=== PATIENT | female | born 1990 | race Caucasian/White ===

== ENCOUNTER 2016-10-18 07:56 | Inpatient (IN) | payer BC, MEDICAID ==
[2016-10-18] MEDS ORDERED: Sodium Chloride 0.9% 10 ML Syringe FLUSH PRN (08:37)
[2016-10-18] MEDS: Lactated Ringers 1,000 ML IV SCH ×4 (08:45→14:33)
[2016-10-18] MEDS ORDERED: Penicillin G Potassium 5 MILLUNITS in Sodium Chloride 0.9% 100 ML IV SCH (08:45)
[2016-10-18] MEDS ORDERED: Oxytocin/Lactated Ringers 10 UNIT/1,000 ML BAG IV SCH ×2 (08:45)
[2016-10-18] MEDS ORDERED: fentaNYL 100 MCG/2 ML SDV EPIDUR PRN (10:04)
[2016-10-18] MEDS ORDERED: Ondansetron 4 MG/2 ML SDV IVPUSH PRN (10:04)
[2016-10-18] MEDS ORDERED: ePHEDrine 50 MG/ML SDV IVPUSH PRN (10:04)
--- NOTE | 2016-10-18 10:10 | PCM.PREANE ---
Preanesthetic Assessment - Anesthesia/Transfusion/Family Hx Anesthesia History: Prior Anesthesia Without Reaction Family History of Anesthesia Reaction: No Transfusion History: No Prior Transfusion(s) Intubation History: Unknown - Review of Systems General: No Symptoms Pulmonary: No Symptoms Cardiovascular: No Symptoms, Lightheadedness (history of in 2016, nothing since.) Gastrointestinal: Diarrhea, Nausea Neurological: No Symptoms Other: Reports: None, Easy Bruising - Physical Assessment NPO Status Date: 10/18/16 NPO Status Time: 10:00 Pulse: 72 O2 Sat by Pulse Oximetry: 99 Respiratory Rate: 16 Blood Pressure: 119/66 Temperature: 36.9 C Vital Signs: Last Vital Signs Temp 36.9 C 10/18/16 08:37 Pulse 72 10/18/16 08:37 Resp 16 10/18/16 08:37 BP 119/66 10/18/16 08:37 Pulse Ox Height: 1.75 m Weight: 94.432 kg ASA Class: 2 Mental Status: Alert & Oriented x3 Airway Class: Mallampati = 2 Dentition: Reports: Normal Dentition, Caries Thyro-Mental Finger Breadths: 3 Mouth Opening Finger Breadths: 3 ROM/Head Extension: Full Lungs: Clear to auscultation, Normal respiratory effort Cardiovascular: Regular Rate, Regular Rhythm, No Murmurs - Lab Values: Laboratory Last Values WBC 10.88 K/mm3 (3.98-10.04) H 10/18/16 08:54 RBC 4.27 M/mm3 (3.98-5.22) 10/18/16 08:54 Hgb 12.4 gm/L (11.2-15.7) 10/18/16 08:54 Hct 36.8 % (34.1-44.9) 10/18/16 08:54 MCV 86.2 fl (79.4-94.8) 10/18/16 08:54 MCH 29.0 pg (25.6-32.2) 10/18/16 08:54 MCHC 33.7 g/dl (32.2-35.5) 10/18/16 08:54 RDW Std Deviation 40.8 fL (36.4-46.3) 10/18/16 08:54 Plt Count 188 K/mm3 (182-369) 10/18/16 08:54 MPV 10.9 fl (9.4-12.3) 10/18/16 08:54 Neut % (Auto) 79.0 % (34.0-71.1) H 10/18/16 08:54 Lymph % (Auto) 13.6 % (19.3-51.7) L 10/18/16 08:54 [place] % (Auto) 6.2 % (4.7-12.5) 10/18/16 08:54 Eos % (Auto) 0.6 (0.7-5.8) L 10/18/16 08:54 Baso % (Auto) 0.3 % (0.1-1.2) 10/18/16 08:54 Neut # (Auto) 8.60 K/mm3 (1.56-6.13) H 10/18/16 08:54 Lymph # (Auto) 1.48 K/mm3 (1.18-3.74) 10/18/16 08:54 [place] # (Auto) 0.67 K/mm3 (0.24-0.36) H 10/18/16 08:54 Eos # (Auto) 0.07 K/mm3 (0.04-0.36) 10/18/16 08:54 Baso # (Auto) 0.03 K/mm3 (0.01-0.08) 10/18/16 08:54 Above lab values noted and reviewed. - Imaging/EKG Impressions: 05/18/2016: EKG due to near syncopal episode, SR rte= 64, no acute ischemia or arrhythmias noted. 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 1 tab PO DAILY 05/18/16 [History] - CURRENT (IN HOUSE) MEDS Current Meds: Current Medications Lactated Ringer's (Ringers, Lactated) 1,000 mls @ 100 mls/hr IV ASDIRECTED CHELA Last Admin: 10/18/16 08:45 Dose: 100 mls/hr Oxytocin/Lactated Ringer's (Pitocin In Lr 10 Units/1,000 Ml) 10 unit in 1,000 mls @ 500 mls/hr IV ASDIRECTED CHELA PRN Reason: Protocol Penicillin G Potassium 5 (millunits/ Sodium Chloride) 100 mls @ 55 mls/hr IV ONETIME CHELA Last Admin: 10/18/16 09:35 Dose: 55 mls/hr Penicillin G Potassium 2.5 (millunits/ Sodium Chloride) 100 mls @ 55 mls/hr IV Q4H CHELA Oxytocin/Lactated Ringer's (Pitocin In Lr 10 Units/1,000 Ml) 10 unit in 1,000 mls @ 12 mls/hr IV TITRATE CHELA; 2 MUNITS/MIN PRN Reason: Protocol Sodium Chloride (Saline Flush) 10 ml FLUSH ASDIRECTED PRN PRN Reason: Keep Vein Open
[2016-10-18] MEDS ORDERED: Bupivacaine/fentaNYL/NS 100 ML Bag EPIDUR SCH (10:15)
--- NOTE | 2016-10-18 11:53 | PCM.LDHP ---
L&D History of Present Illness - General Date of Service: 10/18/16 Admit Problem/Dx: Patient Status Order with Admit Dx/Problem 10/18/16 09:54 Patient Status [ADT] Routine Admission Diagnosis/Problem Admission Diagnosis/Problem Normal labor 10/18/16 11:49 26 yo at 38 weeks 5 days gestation with SROM at 0630 am. Contractions started with SROM. Clear fluid. good movement. no vaginal bleeding. routine care without complications O positive Rubella Immune GBS positive Source of Information: Patient History Limitations: Reports: No Limitations - History of Present Illness Location, : Reports: Abdomen Quality: Reports: Ache Severity: Moderate Improves with: Reports: None Worsens with: Reports: None - Related Data Allergies/Adverse Reactions: Allergies Allergy/AdvReac Type Severity Reaction Status Date / Time Sulfa (Sulfonamide Allergy Hives Verified 10/18/16 09:36 Antibiotics) Home Medications: Home Meds Vitamins. 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: - Past Surgical History HEENT Surgical History: Reports: Oral Surgery Social & Family History - Family History Family Medical History: Noncontributory - Tobacco Use Smoking Status *Q: Never Smoker Second Hand Smoke Exposure: No - Recreational Drug Use Recreational Drug Use: No H&P Review of Systems - Review of Systems: Review Of Systems: See Below General: Reports: No Symptoms HEENT: Reports: No Symptoms Pulmonary: Reports: No Symptoms Cardiovascular: Reports: No Symptoms Gastrointestinal: Reports: No Symptoms Genitourinary: Reports: No Symptoms Musculoskeletal: Reports: No Symptoms Skin: Reports: No Symptoms Psychiatric: Reports: No Symptoms Neurological: Reports: No Symptoms Hematologic/Lymphatic: Reports: No Symptoms Immunologic: Reports: No Symptoms L&D Exam - Exam Exam: See Below - Vital Signs Vital Signs: Last Vital Signs Temp 36.9 C 10/18/16 10:19 Pulse 72 10/18/16 10:19 Resp 16 10/18/16 10:19 BP 119/66 10/18/16 10:19 Pulse Ox 99 10/18/16 10:19 Weight: 94.432 kg - OB Specific Contraction Intensity: Moderate Movement: Active Heart Tones: Present Heart Tones per Min: 130 Heart Rate (FHR) Variability: Moderate (6-25 bmp) Presentation: Vertex Estimated Weight: 3500 - Roberto Score Roberto Score Cervix Position: Midposition Roberto Score Consistency: Soft Roberto Score Effacement: 51-70% Roberto Score Dilation: 3-4 cm Roberto Score 's Station: -2 Roberto Score Total: 8 - Exam General: Alert, Oriented HEENT: Conjunctiva Clear Genitourinary: Normal external exam Extremities: Normal Inspection. No: Edema Skin: Warm, Dry, Intact - Patient Data Lab Results Last 24 hrs: Laboratory Results - last 24 hr 10/18/16 Range/Units 08:54 WBC 10.88 H (3.98-10.04) K/mm3 RBC 4.27 (3.98-5.22) M/mm3 Hgb 12.4 (11.2-15.7) gm/L Hct 36.8 (34.1-44.9) % MCV 86.2 (79.4-94.8) fl MCH 29.0 (25.6-32.2) pg MCHC 33.7 (32.2-35.5) g/dl RDW Std Deviation 40.8 (36.4-46.3) fL Plt Count 188 (182-369) K/mm3 MPV 10.9 (9.4-12.3) fl Neut % (Auto) 79.0 H (34.0-71.1) % Lymph % (Auto) 13.6 L (19.3-51.7) % [place] % (Auto) 6.2 (4.7-12.5) % Eos % (Auto) 0.6 L (0.7-5.8) Baso % (Auto) 0.3 (0.1-1.2) % Neut # (Auto) 8.60 H (1.56-6.13) K/mm3 Lymph # (Auto) 1.48 (1.18-3.74) K/mm3 [place] # (Auto) 0.67 H (0.24-0.36) K/mm3 Eos # (Auto) 0.07 (0.04-0.36) K/mm3 Baso # (Auto) 0.03 (0.01-0.08) K/mm3 Result Diagrams: 10/18/16 08:54 Problem List Initiated/Reviewed/Updated: Yes Orders Last 24hrs: Active Orders 24 hr Category Date Time Status Patient Status [ADT] Routine ADT 10/18/16 09:54 Active Activity as Tolerated [RC] PFP Care 10/18/16 08:37 Active Communication Order [RC] ASDIRECTED Care 10/18/16 08:37 Active Notify Provider [RC] ASDIRECTED Care 10/18/16 10:04 Active Notify Provider [RC] PFP Care 10/18/16 08:37 Active Notify Provider [RC] PRN Care 10/18/16 08:37 Active Oxygen Therapy [RC] ASDIRECTED Care 10/18/16 10:04 Active Peripheral IV Care [RC] . DIRECTED Care 10/18/16 08:38 Active Pulse Oximetry [RC] ASDIRECTED Care 10/18/16 10:04 Active Pump Management, Intrathecal [RC] ASDIRECTED Care 10/18/16 08:37 Active Urinary Catheter Assessment [RC] ASDIRECTED Care 10/18/16 08:37 Active Vital Signs [RC] PER UNIT ROUTINE Care 10/18/16 08:37 Active Clear Liquid Diet [DIET] Diet 10/18/16 Dinner Active Regular Diet [DIET] Diet 10/18/16 Breakfast Active Bupivacaine/fentaNYL/NS [fentaNYL/Bupivacaine/NS 2 MCG- Med 10/18/16 10:15 Active 0.125% 100 ML] 100 ml EPIDUR ASDIRECTED Lactated Ringers [Ringers, Lactated] 1,000 ml Med 10/18/16 08:45 Active IV ASDIRECTED Ondansetron [Zofran] Med 10/18/16 10:04 Active 4 mg IVPUSH ONETIME PRN Oxytocin/Lactated Ringers [Pitocin in LR 10 Units/1,000 Med 10/18/16 08:45 Active ML] 10 unit in 1,000 ml IV ASDIRECTED Oxytocin/Lactated Ringers [Pitocin in LR 10 Units/1,000 Med 10/18/16 08:45 Active ML] 10 unit in 1,000 ml IV TITRATE Penicillin G Potassium [Pfizerpen] 2.5 millunits Med 10/18/16 13:00 Active Sodium Chloride 0.9% [Normal Saline] 100 ml IV Q4H Sodium Chloride 0.9% [Saline Flush] Med 10/18/16 08:37 Active 10 ml FLUSH ASDIRECTED PRN ePHEDrine [ePHEDrine Sulfate] Med 10/18/16 10:04 Active 5 mg IVPUSH ASDIRECTED PRN fentaNYL [Sublimaze] Med 10/18/16 10:04 Active 100 mcg EPIDUR Q3H PRN Electronic Heart Tones Ext w TOCO [WOMSER] Oth 10/18/16 08:37 Ordered Routine Electronic Heart Tones Internal [WOMSER] Per Unit Oth 10/18/16 08:37 Ordered Routine Peripheral IV Insertion Adult [OM.PC] Routine Oth 10/18/16 08:37 Ordered Resuscitation Status Routine Resus Stat 10/18/16 08:37 Ordered Medication Orders Ephedrine Sulfate (Ephedrine Sulfate) 5 mg IVPUSH ASDIRECTED PRN PRN Reason: Hypotension Fentanyl (Sublimaze) 100 mcg EPIDUR Q3H PRN PRN Reason: Pain Fentanyl/Bupivacaine HCl (Fentanyl/Bupivacaine/Ns 2 Mcg-0.125% 100 Ml) 100 ml EPIDUR ASDIRECTED CHELA Lactated Ringer's (Ringers, Lactated) 1,000 mls @ 100 mls/hr IV ASDIRECTED CHELA Last Admin: 10/18/16 08:45 Dose: 100 mls/hr Oxytocin/Lactated Ringer's (Pitocin In Lr 10 Units/1,000 Ml) 10 unit in 1,000 mls @ 500 mls/hr IV ASDIRECTED CHELA PRN Reason: Protocol Penicillin G Potassium 2.5 (millunits/ Sodium Chloride) 100 mls @ 55 mls/hr IV Q4H CHELA Oxytocin/Lactated Ringer's (Pitocin In Lr 10 Units/1,000 Ml) 10 unit in 1,000 mls @ 12 mls/hr IV TITRATE CHELA; 2 MUNITS/MIN PRN Reason: Protocol Last Admin: 10/18/16 10:45 Dose: 2 munits/min, 12 mls/hr Ondansetron HCl (Zofran) 4 mg IVPUSH ONETIME PRN PRN Reason: Nausea/Vomiting Sodium Chloride (Saline Flush) 10 ml FLUSH ASDIRECTED PRN PRN Reason: Keep Vein Open Assessment/Plan Comment:: 26 yo at 38 weeks 5 days gestation with SROM at home. Admit for labor Pitocin started GBS positive-penicillin started. Anticipate vaginal delivery. Pt desires epidural for pain management.
[2016-10-18] MEDS ORDERED: Penicillin G Potassium 2.5 MILLUNITS in Sodium Chloride 0.9% 100 ML IV SCH (13:00)
[2016-10-18] MEDS ORDERED: Lanolin 100% Cream 7 GM Tube TOP PRN (16:36)
[2016-10-18] MEDS ORDERED: Witch Hazel Medicated Pads 100/Jar TOP PRN (16:36)
[2016-10-18] MEDS ORDERED: Benzocaine/Menthol 20%-0.5% Spray 56 GM Canister TOP PRN (16:36)
--- NOTE | 2016-10-18 16:46 | PCM.DEL ---
L & D Note - General Info Date of Service: 10/18/16 Mother's Due Date: 10/27/16 - Delivery Note Labor: spontaneous, augmented by oxytocin Delivery Outcome: Livebirth Infant Delivery Method: Spontaneous Vaginal Delivery Delivery Mode: Vacuum Extraction Presentation: Left Occiput Anterior (OTTO) Nuchal Cord: None Prep: Povidone-Iodine (Betadine Anesthesia Type: Epidural Amniotic Fluid Description: Clear Episiotomy Type: None Laceration: 1st degree, labial, vaginal Suture type: vicryl Suture size: 3-0 Placenta: intact, spontaneous Cord: 3 vessels Estimated Blood Loss: 300 [place]: Suctioned, Bulb Syringe Score 1 min: 8 Score 5 min: 9 Delivery Comments (Free Text/Narrative):: 2730 grams, 6 lbs time of delivery 1613 - Patient Data Vitals - most recent: Last Vital Signs Temp 36.9 C 10/18/16 10:19 Pulse 72 10/18/16 10:19 Resp 16 10/18/16 10:19 BP 119/66 10/18/16 10:19 Pulse Ox 99 10/18/16 10:19 Weight - most recent: 94.432 kg I&O - last 24 hours: Intake & Output 10/18/16 10/18/16 10/18/16 06:59 14:59 22:59 Intake Total 3200 Balance 3200 Lab Results last 24 hrs: Laboratory Results - last 24 hr 10/18/16 Range/Units 08:54 WBC 10.88 H (3.98-10.04) K/mm3 RBC 4.27 (3.98-5.22) M/mm3 Hgb 12.4 (11.2-15.7) gm/L Hct 36.8 (34.1-44.9) % MCV 86.2 (79.4-94.8) fl MCH 29.0 (25.6-32.2) pg MCHC 33.7 (32.2-35.5) g/dl RDW Std Deviation 40.8 (36.4-46.3) fL Plt Count 188 (182-369) K/mm3 MPV 10.9 (9.4-12.3) fl Neut % (Auto) 79.0 H (34.0-71.1) % Lymph % (Auto) 13.6 L (19.3-51.7) % [place] % (Auto) 6.2 (4.7-12.5) % Eos % (Auto) 0.6 L (0.7-5.8) Baso % (Auto) 0.3 (0.1-1.2) % Neut # (Auto) 8.60 H (1.56-6.13) K/mm3 Lymph # (Auto) 1.48 (1.18-3.74) K/mm3 [place] # (Auto) 0.67 H (0.24-0.36) K/mm3 Eos # (Auto) 0.07 (0.04-0.36) K/mm3 Baso # (Auto) 0.03 (0.01-0.08) K/mm3 Med Orders - Current: Current Medications Benzocaine/Menthol (Dermoplast Pain Relief [place]) 0 gm TOP ASDIRECTED PRN PRN Reason: Perineal Comfort Measure Docusate Sodium (Colace) 100 mg PO BID PRN PRN Reason: Constipation Emollient Ointment (Lansinoh Hpa) 0 gm TOP ASDIRECTED PRN PRN Reason: Sore Nipples Ephedrine Sulfate (Ephedrine Sulfate) 5 mg IVPUSH ASDIRECTED PRN PRN Reason: Hypotension Fentanyl (Sublimaze) 100 mcg EPIDUR Q3H PRN PRN Reason: Pain Fentanyl/Bupivacaine HCl (Fentanyl/Bupivacaine/Ns 2 Mcg-0.125% 100 Ml) 100 ml EPIDUR ASDIRECTED [facility] Last Admin: 10/18/16 12:25 Dose: 100 ml Lactated Ringer's (Ringers, Lactated) 1,000 mls @ 100 mls/hr IV ASDIRECTED [facility] Last Admin: 10/18/16 14:33 Dose: 500 mls/hr Oxytocin/Lactated Ringer's (Pitocin In Lr 10 Units/1,000 Ml) 10 unit in 1,000 mls @ 500 mls/hr IV ASDIRECTED [facility] PRN Reason: Protocol Penicillin G Potassium 2.5 (millunits/ Sodium Chloride) 100 mls @ 55 mls/hr IV Q4H [facility] Last Admin: 10/18/16 13:10 Dose: 55 mls/hr Oxytocin/Lactated Ringer's (Pitocin In Lr 10 Units/1,000 Ml) 10 unit in 1,000 mls @ 12 mls/hr IV TITRATE CHELA; 2 MUNITS/MIN PRN Reason: Protocol Last Titration: 10/18/16 13:50 Dose: 1 munits/min, 6 mls/hr Ibuprofen (Motrin) 600 mg PO Q4H PRN PRN Reason: Mild pain or fever Ondansetron HCl (Zofran) 4 mg IVPUSH ONETIME PRN PRN Reason: Nausea/Vomiting Sodium Chloride (Saline Flush) 10 ml FLUSH ASDIRECTED PRN PRN Reason: Keep Vein Open [place] (Tucks) 1 pad TOP ASDIRECTED PRN PRN Reason: Hemorrhoid pain Discontinued Medications Penicillin G Potassium 5 (millunits/ Sodium Chloride) 100 mls @ 55 mls/hr IV ONETIME CHELA Last Admin: 10/18/16 09:35 Dose: 55 mls/hr - Problem List Review Problem List Initiated/Reviewed/Updated: Yes - My Orders Last 24 Hours: My Active Orders 10/18/16 08:37 Activity as Tolerated [RC] PFP Communication Order [RC] ASDIRECTED Notify Provider [RC] PFP Notify Provider [RC] PRN Urinary Catheter Assessment [RC] ASDIRECTED Vital Signs [RC] PER UNIT ROUTINE Sodium Chloride 0.9% [Saline Flush] 10 ml FLUSH ASDIRECTED PRN Electronic Heart Tones Ext w TOCO [WOMSER] Routine Electronic Heart Tones Internal [WOMSER] Per Unit Routine Peripheral IV Insertion Adult [OM.PC] Routine Resuscitation Status Routine 10/18/16 08:38 Peripheral IV Care [RC] . DIRECTED 10/18/16 08:45 Lactated Ringers [Ringers, Lactated] 1,000 ml IV ASDIRECTED Oxytocin/Lactated Ringers [Pitocin in LR 10 Units/1,000 ML] 10 unit in 1,000 ml IV ASDIRECTED Oxytocin/Lactated Ringers [Pitocin in LR 10 Units/1,000 ML] 10 unit in 1,000 ml IV TITRATE 10/18/16 09:54 Patient Status [ADT] Routine 10/18/16 13:00 Penicillin G Potassium [Pfizerpen] 2.5 millunits Sodium Chloride 0.9% [Normal Saline] 100 ml IV Q4H 10/18/16 16:35 Patient Status Manage Transfer [TRANSFER] Routine 10/18/16 16:36 Activity as Tolerated [RC] PER UNIT ROUTINE Vital Signs [RC] ASDIRECTED Benzocaine/Menthol [Dermoplast Pain Relief [place]] See Dose Instructions TOP ASDIRECTED PRN Docusate Sodium [Colace] 100 mg PO BID PRN Ibuprofen [Motrin] 600 mg PO Q4H PRN Lanolin [Lansinoh HPA] See Dose Instructions TOP ASDIRECTED PRN Witch Vianey [Tucks] 1 pad TOP ASDIRECTED PRN Assess Lochia [WOMSER] Per Unit Routine Assess Uterine Involution [WOMSER] Per Unit Routine Breast Pump [WOMSER] Per Unit Routine Medication Administration Instruction [OM.PC] Routine Perineal Care [OM.PC] Per Unit Routine Sitz Bath [OM.PC] Per Unit Routine 10/18/16 16:45 Heat Therapy [OM.PC] PRN 10/18/16 Breakfast Regular Diet [DIET] 10/18/16 Dinner Clear Liquid Diet [DIET] 10/19/16 06:00 CBC W/O DIFF,HEMOGRAM [HEME] Routine 10/19/16 16:45 Heat Therapy [OM.PC] PRN - Plan Plan:: 26 yo at 38 weeks 5 days gestation with SROM at home. Admit for labor Pitocin started GBS positive-penicillin started. Anticipate vaginal delivery. Pt desires epidural for pain management.
[2016-10-18] MEDS ORDERED: Bupivacaine 0.25% 10 ML SDV ONE (16:47)
[2016-10-18] MEDS ORDERED: Acetaminophen 325 MG Tab PO PRN (19:13)
[2016-10-18] MEDS: Docusate Sodium 100 MG Cap PO PRN (20:08)
--- NOTE | 2016-10-19 09:04 | PCM.PNPP ---
- General Info Date of Service: 10/19/16 Admission Dx/Problem (Free Text): vacuum assisted vaginal delivery Subjective Update: Marilyn had fever of 100.4 within 3 hours of delivery. she was treated with 650 mg tylenol x 1. no return of fever. no uterine tenderness. Functional Status: Reports: pain controlled, tolerating diet, ambulating, urinating - Review of Systems Pulmonary: Reports: no symptoms Cardiovascular: Reports: No Symptoms Gastrointestinal: Reports: No symptoms Genitourinary: Reports: no symptoms Musculoskeletal: Reports: no symptoms - General Info Date of Service: 10/19/16 - Patient Data Vital Signs - most recent: Last Vital Signs Temp 37.2 C 10/18/16 22:14 Pulse 74 10/18/16 21:27 Resp 18 10/18/16 21:27 BP 128/88 10/18/16 21:27 Pulse Ox 99 10/18/16 21:27 Weight - most recent: 94.432 kg I&O - last 24 hours: Intake & Output 10/18/16 10/19/16 10/19/16 22:59 06:59 14:59 Intake Total 1500 Balance 1500 Lab Results - last 24 hrs: Laboratory Results - last 24 hr 10/19/16 Range/Units 05:00 WBC 11.96 H (3.98-10.04) K/mm3 RBC 3.90 L (3.98-5.22) M/mm3 Hgb 11.2 (11.2-15.7) gm/L Hct 34.1 (34.1-44.9) % MCV 87.4 (79.4-94.8) fl MCH 28.7 (25.6-32.2) pg MCHC 32.8 (32.2-35.5) g/dl RDW Std Deviation 41.3 (36.4-46.3) fL Plt Count 140 L (182-369) K/mm3 MPV 11.6 (9.4-12.3) fl Med Orders - Current: Current Medications Acetaminophen (Tylenol) 650 mg PO Q4H PRN PRN Reason: Fever Last Admin: 10/18/16 19:30 Dose: 650 mg Benzocaine/Menthol (Dermoplast Pain Relief [place]) 0 gm TOP ASDIRECTED PRN PRN Reason: Perineal Comfort Measure Last Admin: 10/18/16 20:08 Dose: 1 canister Docusate Sodium (Colace) 100 mg PO BID PRN PRN Reason: Constipation Last Admin: 10/18/16 20:08 Dose: 100 mg Emollient Ointment (Lansinoh Hpa) 0 gm TOP ASDIRECTED PRN PRN Reason: Sore Nipples Last Admin: 10/18/16 20:08 Dose: 1 tube Ibuprofen (Motrin) 600 mg PO Q4H PRN PRN Reason: Mild pain or fever Witch [place]ian[place] (Tucks) 1 pad TOP ASDIRECTED PRN PRN Reason: Hemorrhoid pain Last Admin: 10/18/16 20:07 Dose: 1 canister Discontinued Medications Ephedrine Sulfate (Ephedrine Sulfate) 5 mg IVPUSH ASDIRECTED PRN PRN Reason: Hypotension Fentanyl (Sublimaze) 100 mcg EPIDUR Q3H PRN PRN Reason: Pain Fentanyl/Bupivacaine HCl (Fentanyl/Bupivacaine/Ns 2 Mcg-0.125% 100 Ml) 100 ml EPIDUR ASDIRECTED CHELA Last Admin: 10/18/16 12:25 Dose: 100 ml Lactated Ringer's (Ringers, Lactated) 1,000 mls @ 100 mls/hr IV ASDIRECTED CHELA Last Admin: 10/18/16 14:33 Dose: 500 mls/hr Oxytocin/Lactated Ringer's (Pitocin In Lr 10 Units/1,000 Ml) 10 unit in 1,000 mls @ 500 mls/hr IV ASDIRECTED CHELA PRN Reason: Protocol Penicillin G Potassium 5 (millunits/ Sodium Chloride) 100 mls @ 55 mls/hr IV ONETIME CHELA Last Admin: 10/18/16 09:35 Dose: 55 mls/hr Penicillin G Potassium 2.5 (millunits/ Sodium Chloride) 100 mls @ 55 mls/hr IV Q4H CHELA Last Admin: 10/18/16 13:10 Dose: 55 mls/hr Oxytocin/Lactated Ringer's (Pitocin In Lr 10 Units/1,000 Ml) 10 unit in 1,000 mls @ 12 mls/hr IV TITRATE CHELA; 2 MUNITS/MIN PRN Reason: Protocol Last Titration: 10/18/16 13:50 Dose: 1 munits/min, 6 mls/hr Ondansetron HCl (Zofran) 4 mg IVPUSH ONETIME PRN PRN Reason: Nausea/Vomiting Sodium Chloride (Saline Flush) 10 ml FLUSH ASDIRECTED PRN PRN Reason: Keep Vein Open - Interaction Disposition, : in Room with Family Infant Interaction: Holding Infant Feeding: Bottle Fed Infant, Breastfed ; Nursed Well Support Person: Significant Other - Recovery Exam Fundal Tone: Firm Fundal Level: At Umbilicus Fundal Placement: Midline Lochia Amount: Small Bladder Status: Voiding - Exam General: alert, oriented Extremities: no edema Skin: warm, dry, intact - Problem List Review Problem List Initiated/Reviewed/Updated: Yes - My Orders Last 24 Hours: My Active Orders 10/18/16 08:37 Resuscitation Status Routine 10/18/16 09:54 Patient Status [ADT] Routine 10/18/16 16:36 Activity as Tolerated [RC] PER UNIT ROUTINE Vital Signs [RC] 04,12,20 Benzocaine/Menthol [Dermoplast Pain Relief [place]] See Dose Instructions TOP ASDIRECTED PRN Docusate Sodium [Colace] 100 mg PO BID PRN Ibuprofen [Motrin] 600 mg PO Q4H PRN Lanolin [Lansinoh HPA] See Dose Instructions TOP ASDIRECTED PRN Witch [place] [Tucks] 1 pad TOP ASDIRECTED PRN Assess Lochia [WOMSER] Per Unit Routine Assess Uterine Involution [WOMSER] Per Unit Routine Breast Pump [WOMSER] Per Unit Routine Medication Administration Instruction [OM.PC] Routine Perineal Care [OM.PC] Per Unit Routine Sitz Bath [OM.PC] Per Unit Routine 10/18/16 16:45 Heat Therapy [OM.PC] PRN 10/18/16 19:13 Acetaminophen [Tylenol] 650 mg PO Q4H PRN 10/19/16 16:45 Heat Therapy [OM.PC] PRN - Plan Plan:: 26 yo at 38 weeks 5 days gestation with SROM at home. Admit for labor Pitocin started GBS positive-penicillin started. Anticipate vaginal delivery. Pt desires epidural for pain management. 10/19/16 continue with support. continue to monitor for return of fever. anticipated discharge 10/20/16 afternoon.
[2016-10-19] MEDS: Ibuprofen 600 MG Tab PO PRN ×2 (10:45→20:07)
[2016-10-19] MEDS: Docusate Sodium 100 MG Cap PO PRN ×2 (10:45→20:07)
[2016-10-20 03:32] VITALS: BP 121/86
--- NOTE | 2016-10-20 09:58 | PCM.DCSUM1 ---
Discharge Summary - Hospital Course Free Text/Narrative:: 26 yo G2 now P2 on day 2, s/p vacuum assisted vaginal delivery. Pain controlled with ibuprofen. no concerns. she has decided to formula feed infant. exam unremarkable. plan to discharge to home today. - Discharge Data Discharge Date: 10/20/16 Discharge Disposition: Home, Self-Care 01 Condition: Good - Discharge Diagnosis/Problem(s) (1) Status post vacuum-assisted vaginal delivery SNOMED Code(s): 722125556, [id number] ICD Code: Z87.42 - PERSONAL HISTORY OF OTH DISEASES OF THE FEMALE GENITAL TRACT Status: Acute Current Visit: Yes - Patient Instructions Diet: Heart Healthy Diet Activity: As Tolerated Driving: May Drive Today Showering/Bathing: May Shower Notify Provider of: Fever, Increased Pain, Swelling and Redness, Drainage, Nausea and/or Vomiting - Discharge Plan Home Medications: Home Meds Vitamins. 1 tab PO DAILY 05/18/16 [History] Acetaminophen [Tylenol] 650 mg PO Q4H PRN #0 tablet 10/20/16 [Rx] Benzocaine/Menthol [Dermoplast Pain Relief [place]] 1 applic TOP ASDIRECTED PRN # 0 canister 10/20/16 [Rx] Docusate Sodium [Colace] 100 mg PO BID PRN #0 cap 10/20/16 [Rx] Ibuprofen [IJD: Ibuprofen] 600 mg PO Q4H PRN #0 tablet 10/20/16 [Rx] Witch Vianey [Tucks] 1 pad TOP ASDIRECTED PRN #0 pad 10/20/16 [Rx] Referrals: Ayesha Cantor MD [Primary Care Provider] - (8 weeks) - Discharge Summary/Plan Comment DC Time >30 min.: No - General Info Date of Service: 10/20/16 Functional Status: Reports: pain controlled, tolerating diet, ambulating - Patient Data Vitals - Most Recent: Last Vital Signs Temp 36.3 C 10/20/16 02:55 Pulse 64 10/20/16 02:55 Resp 16 10/20/16 02:55 BP 121/86 10/20/16 02:55 Pulse Ox 100 10/20/16 02:55 Weight - Most Recent: 94.432 kg I&O - Last 24 hours: Intake & Output 10/19/16 10/20/16 10/20/16 22:59 06:59 14:59 Intake Total 240 Balance 240 Med Orders - Current: Current Medications Acetaminophen (Tylenol) 650 mg PO Q4H PRN PRN Reason: Fever Last Admin: 10/18/16 19:30 Dose: 650 mg Benzocaine/Menthol (Dermoplast Pain Relief [place]) 0 gm TOP ASDIRECTED PRN PRN Reason: Perineal Comfort Measure Last Admin: 10/18/16 20:08 Dose: 1 canister Docusate Sodium (Colace) 100 mg PO BID PRN PRN Reason: Constipation Last Admin: 10/19/16 20:07 Dose: 100 mg Emollient Ointment (Lansinoh Hpa) 0 gm TOP ASDIRECTED PRN PRN Reason: Sore Nipples Last Admin: 10/18/16 20:08 Dose: 1 tube Ibuprofen (Motrin) 600 mg PO Q4H PRN PRN Reason: Mild pain or fever Last Admin: 10/19/16 20:07 Dose: 600 mg Witch Vianey (Tucks) 1 pad TOP ASDIRECTED PRN PRN Reason: Hemorrhoid pain Last Admin: 10/18/16 20:07 Dose: 1 canister Discontinued Medications Ephedrine Sulfate (Ephedrine Sulfate) 5 mg IVPUSH ASDIRECTED PRN PRN Reason: Hypotension Fentanyl (Sublimaze) 100 mcg EPIDUR Q3H PRN PRN Reason: Pain Fentanyl/Bupivacaine HCl (Fentanyl/Bupivacaine/Ns 2 Mcg-0.125% 100 Ml) 100 ml EPIDUR ASDIRECTED [facility] Last Admin: 10/18/16 12:25 Dose: 100 ml Lactated Ringer's (Ringers, Lactated) 1,000 mls @ 100 mls/hr IV ASDIRECTED [facility] Last Admin: 10/18/16 14:33 Dose: 500 mls/hr Oxytocin/Lactated Ringer's (Pitocin In Lr 10 Units/1,000 Ml) 10 unit in 1,000 mls @ 500 mls/hr IV ASDIRECTED [facility] PRN Reason: Protocol Penicillin G Potassium 5 (millunits/ Sodium Chloride) 100 mls @ 55 mls/hr IV ONETIME [facility] Last Admin: 10/18/16 09:35 Dose: 55 mls/hr Penicillin G Potassium 2.5 (millunits/ Sodium Chloride) 100 mls @ 55 mls/hr IV Q4H [facility] Last Admin: 10/18/16 13:10 Dose: 55 mls/hr Oxytocin/Lactated Ringer's (Pitocin In Lr 10 Units/1,000 Ml) 10 unit in 1,000 mls @ 12 mls/hr IV TITRATE [facility]; 2 MUNITS/MIN PRN Reason: Protocol Last Titration: 10/18/16 13:50 Dose: 1 munits/min, 6 mls/hr Ondansetron HCl (Zofran) 4 mg IVPUSH ONETIME PRN PRN Reason: Nausea/Vomiting Sodium Chloride (Saline Flush) 10 ml FLUSH ASDIRECTED PRN PRN Reason: Keep Vein Open *Q Meaningful Use (DIS) - VTE *Q VTE Criteria *Q: - Stroke *Q Stroke Criteria *Q: - AMI *Q AMI Criteria *Q: - General Info Date of Service: 10/20/16 - Patient Data Vital Signs - most recent: Last Vital Signs Temp 36.3 C 10/20/16 02:55 Pulse 64 10/20/16 02:55 Resp 16 10/20/16 02:55 BP 121/86 10/20/16 02:55 Pulse Ox 100 10/20/16 02:55 Weight - most recent: 94.432 kg I&O - last 24 hours: Intake & Output 10/19/16 10/20/16 10/20/16 22:59 06:59 14:59 Intake Total 240 Balance 240 Med Orders - Current: Current Medications Acetaminophen (Tylenol) 650 mg PO Q4H PRN PRN Reason: Fever Last Admin: 10/18/16 19:30 Dose: 650 mg Benzocaine/Menthol (Dermoplast Pain Relief [place]) 0 gm TOP ASDIRECTED PRN PRN Reason: Perineal Comfort Measure Last Admin: 10/18/16 20:08 Dose: 1 canister Docusate Sodium (Colace) 100 mg PO BID PRN PRN Reason: Constipation Last Admin: 10/19/16 20:07 Dose: 100 mg Emollient Ointment (Lansinoh Hpa) 0 gm TOP ASDIRECTED PRN PRN Reason: Sore Nipples Last Admin: 10/18/16 20:08 Dose: 1 tube Ibuprofen (Motrin) 600 mg PO Q4H PRN PRN Reason: Mild pain or fever Last Admin: 10/19/16 20:07 Dose: 600 mg Witch Vianey (Tucks) 1 pad TOP ASDIRECTED PRN PRN Reason: Hemorrhoid pain Last Admin: 10/18/16 20:07 Dose: 1 canister Discontinued Medications Ephedrine Sulfate (Ephedrine Sulfate) 5 mg IVPUSH ASDIRECTED PRN PRN Reason: Hypotension Fentanyl (Sublimaze) 100 mcg EPIDUR Q3H PRN PRN Reason: Pain Fentanyl/Bupivacaine HCl (Fentanyl/Bupivacaine/Ns 2 Mcg-0.125% 100 Ml) 100 ml EPIDUR ASDIRECTED [facility] Last Admin: 10/18/16 12:25 Dose: 100 ml Lactated Ringer's (Ringers, Lactated) 1,000 mls @ 100 mls/hr IV ASDIRECTED [facility] Last Admin: 10/18/16 14:33 Dose: 500 mls/hr Oxytocin/Lactated Ringer's (Pitocin In Lr 10 Units/1,000 Ml) 10 unit in 1,000 mls @ 500 mls/hr IV ASDIRECTED [facility] PRN Reason: Protocol Penicillin G Potassium 5 (millunits/ Sodium Chloride) 100 mls @ 55 mls/hr IV ONETIME [facility] Last Admin: 10/18/16 09:35 Dose: 55 mls/hr Penicillin G Potassium 2.5 (millunits/ Sodium Chloride) 100 mls @ 55 mls/hr IV Q4H [facility] Last Admin: 10/18/16 13:10 Dose: 55 mls/hr Oxytocin/Lactated Ringer's (Pitocin In Lr 10 Units/1,000 Ml) 10 unit in 1,000 mls @ 12 mls/hr IV TITRATE [facility]; 2 MUNITS/MIN PRN Reason: Protocol Last Titration: 10/18/16 13:50 Dose: 1 munits/min, 6 mls/hr Ondansetron HCl (Zofran) 4 mg IVPUSH ONETIME PRN PRN Reason: Nausea/Vomiting Sodium Chloride (Saline Flush) 10 ml FLUSH ASDIRECTED PRN PRN Reason: Keep Vein Open - Interaction Infant Disposition, : in Room with Family Infant Interaction: Holding Infant Feeding: Bottle Fed Support Person: Significant Other - Recovery Exam Fundal Tone: Firm Fundal Level: 2 Fingerbreadths Below Umbilicus Fundal Placement: Midline Lochia Amount: Moderate Lochia Color: Rubra/Red Perineum Description: Intact, Minimal Bruising/Swelling Episiotomy/Laceration: Approximated Bladder Status: Voiding Urinary Elimination: Voided - Exam General: alert, oriented Extremities: no edema Skin: warm, dry, intact
== END 2016-10-20 12:15 | disposition home or self-care (01) | DRG 560 ==
LOC: JD.OB 07:56 → OBSVTOIN 16:13 → JD.OB 16:13
PROVIDERS: ADMIT Family Medicine; ATTEND Family Medicine
PROC: 10D07Z6 Extraction of Products of Conception, Vacuum, Via Natural or Artificial Opening (ICD-10-PCS; principal; 2016-10-18)
PROC: 3E0R3CZ (ICD-10-PCS; 2016-10-18)
PROC: 0HQ9XZZ Repair Perineum Skin, External Approach (ICD-10-PCS; 2016-10-18)
DX: O99.824 Streptococcus B carrier state complicating childbirth (principal); O70.0 First degree perineal laceration during delivery; Z3A.38 38 weeks gestation of pregnancy; Z37.0 Single live birth; R55 Syncope and collapse
CPT/HCPCS: 01967; 36415; 85025; 85027; A9270-GY; J2540; J2590; J7030; J7120

== ENCOUNTER 2022-11-26 00:50 | Emergency (ER) | payer BC, MEDICAID ==
[2022-11-26 01:18] LABS: BASOPHILS ABSOLUTE AUTO 0.03 K/mm3 (0.01-0.08); BASOPHILS PERCENT AUTO 0.3 % (0.1-1.2); EOSINOPHILS PERCENT AUTO 2.2 (0.7-5.8); HEMATOCRIT 39.3 % (34.1-44.9); IMMATURE GRAN ABSOLUTE AUTO 0.02 K/mm3 (0.00-0.10); IMMATURE GRAN PERCENT AUTO 0.2 % (<=1.0); LYMPHOCYTES ABSOLUTE AUTO 2.59 K/mm3 (1.18-3.74); MEAN CORPUSCULAR HEMOGLOBIN 27.6 pg (25.6-32.2); MEAN CORPUSCULAR HGB CONC 32.8 g/dl (32.2-35.5); MEAN CORPUSCULAR VOLUME 84.2 fl (79.4-94.8); MEAN PLATELET VOLUME 10.1 fl (9.4-12.3); MONOCYTES ABSOLUTE AUTO 0.77 K/mm3 (0.24-0.36); MONOCYTES PERCENT AUTO 8.3 % (4.7-12.5); NEUTROPHILS ABSOLUTE AUTO 5.65 K/mm3 (1.56-6.13); PLATELET COUNT,PLT 257 K/mm3 (182-369); RED BLOOD CELL COUNT 4.67 M/mm3 (3.98-5.22); WHITE BLOOD CELL COUNT,WBC 9.26 K/mm3 (3.98-10.04)
[2022-11-26 01:19] LABS: HEMOGLOBIN 12.9 gm/dl (11.2-15.7)
[2022-11-26 01:41] LABS: A/G RATIO 0.8 (1-2); ALBUMIN 3.2 g/dl (3.4-5.0); ANION GAP 12.6 (5-15); BILIRUBIN TOTAL 0.2 mg/dL (0.2-1.0); CALCIUM 8.5 mg/dL (8.5-10.1); CREATININE 0.9 mg/dL (0.55-1.02); EST CRCL DRUG DOSING (CG) 94.65 mL/min; POTASSIUM,K 3.6 mEq/L (3.5-5.1); PROTEIN TOTAL,TP 7.3 g/dl (6.4-8.2)
[2022-11-26] MEDS ORDERED: cefTRIAXone 1 GM in Sodium Chloride 0.9% 100 ML IV ONE (01:42)
[2022-11-26] MEDS ORDERED: Bupivacaine 0.5% 10 ML SDV ONE (01:46)
[2022-11-26] MEDS ORDERED: Bupivacaine 0.5% 10 ML SDV INJECT ONE (01:47)
[2022-11-26] MEDS ORDERED: Lidocaine 1% 10 ML MDV ONE (02:32)
[2022-11-26] MEDS ORDERED: Lidocaine 1% 10 ML MDV INJECT ONE (03:22)
[2022-11-26 03:28] VITALS: BP 134/69; PULSE 84
== END 2022-11-26 03:26 | disposition home or self-care (01) ==
LOC: JD.ED 00:50
DX: S62.501B Fracture of unspecified phalanx of right thumb, initial encounter for open fracture (principal); Z88.2 Allergy status to sulfonamides; W34.09XA Accidental discharge from other specified firearms, initial encounter
CPT/HCPCS: 36415; 73130; 73552; 73590; 80053; 80307; 85025; 96365; 99285; J0696; J3490; 12001; 12032; 99284